=== PATIENT | female | born 1975 | race Caucasian/White ===

== ENCOUNTER 2018-06-06 17:44 | Emergency (ER) | payer MEDICAID, OTHER ==
[~2018-06-06] VITALS: Ht 165.1 cm; Wt 81.8 kg
[~2018-06-06 17:44] MED LIST: PRED5SOL8 PO; TRAM50TA4 PO; VENL-68 PO
[2018-06-06] MEDS ORDERED: LAMO100 PO (17:50)
[2018-06-06] MEDS ORDERED: TRAZ150 PO (17:50)
[2018-06-06] MEDS ORDERED: GABA-531 PO (17:52)
[2018-06-06] MEDS ORDERED: CYCLOBENZAPRINE HCL 10 MG TABLET PO ONE (18:30)
[2018-06-06] MEDS ORDERED: KETOROLAC TROMETHAMINE 30 MG/ML VIAL IM ONE (18:30)
[2018-06-06] MEDS ORDERED: HYDROCODONE/ACETAMINOPHEN 5-325 MG TABLET PO ONE (19:15)
[2018-06-06 19:30] VITALS: BP 114/64
== END 2018-06-06 19:56 | disposition home or self-care (01) ==
LOC: EMS 17:45
DX: S16.1XXA Strain of muscle, fascia and tendon at neck level, initial encounter (principal); M54.42 Lumbago with sciatica, left side; M54.41 Lumbago with sciatica, right side; G89.29 Other chronic pain; J45.909 Unspecified asthma, uncomplicated; G43.909 Migraine, unspecified, not intractable, without status migrainosus; F32.9 Major depressive disorder, single episode, unspecified; F41.9 Anxiety disorder, unspecified; X58.XXXA Exposure to other specified factors, initial encounter; Y93.89 Activity, other specified; Y92.89 Other specified places as the place of occurrence of the external cause; Y99.8 Other external cause status
CPT/HCPCS: 96372; 99283; J1885